=== PATIENT | male | born 1990 | race Caucasian/White ===

== ENCOUNTER 2022-06-19 17:14 | Emergency (ER) | payer BC, OTHER ==
[2022-06-19] MEDS ORDERED: Lidocaine 1% (PF) 30 ML VIAL ONE (17:30)
[2022-06-19] MEDS ORDERED: Boostrix 0.5 ML (Tdap) VIAL (>/=7 yrs of age) ONE (18:03)
[2022-06-19] MEDS ORDERED: Bacitracin 1 PK ONE (18:12)
== END 2022-06-19 18:38 | disposition home or self-care (01) ==
LOC: NAV ERS 17:14
DX: S61.012A Laceration without foreign body of left thumb without damage to nail, initial encounter (principal); E78.00 Pure hypercholesterolemia, unspecified; I10 Essential (primary) hypertension; W26.0XXA Contact with knife, initial encounter; Z23 Encounter for immunization; Z79.899 Other long term (current) drug therapy
CPT/HCPCS: 12001; 90471; 90715; J2001

== ENCOUNTER 2022-06-27 15:45 | Emergency (ER) | payer OTHER | END 2022-06-27 16:22 | disposition home or self-care (01) | LOC: NAV ERS 15:45 | DX: S61.012D Laceration without foreign body of left thumb without damage to nail, subsequent encounter (principal); E78.00 Pure hypercholesterolemia, unspecified; I10 Essential (primary) hypertension; Z79.899 Other long term (current) drug therapy; W26.0XXD Contact with knife, subsequent encounter ==